=== PATIENT | female | born 1955 | race Two or more races ===

== ENCOUNTER 2019-07-01 05:54 | Inpatient (IN) | payer OTHER ==
[~2019-07-01] VITALS: Ht 162.6 cm; Wt 74.8 kg
--- NOTE | 2019-07-01 06:02 | NUR ---
SE RECIBE PTE ALERTA Y ORIENTADA POR BENOIT EN AMBULANCIA, CANALIZADA EN AREA ANTECUBITAL DERECHO CON ANGIO #20. SE OBSEVA AREA DE CANALIZACION PATENTE. PTE DE DRA. IHSAN MARTINI ES TRANSFERIDA DESDE EL [facility] POR [place] RECETAL DESDE HACE [address] DAL[address]. PTE INDICA QUE SE LE REALIZO SHEKHAR HEMORROIDECTOMIA POR DR.NICOL MARTINI. PTE ES PRESENTADA A DR. SALDIVAR POR PERSONAL PARAMEDICO Y COLOCADA EN AREA DE OBSERVACION CON BARANDAS ELEVADAS EN ESPERA DE EVALUACION MEDICA.
--- NOTE | 2019-07-01 07:41 | NUR ---
MRS CASTILLO ORIENTA A PTE SOBRE ORDENES MEDICAS, LA CUAL REFIERE ENTENDER. LE COLECTA MUESTRAS, LA CANALIZA Y LE ADMINISTRA MEDICAMENTOS BAJO MEDIDAS ASEPTICAS, KENDALL ORDEN MEDICA. PT TOLERA NO PRESENTA REACCION ADVERSA AL MOMENTO.
== END 2019-07-02 13:45 | disposition home or self-care (01) | DRG 379 ==
LOC: ER 05:54 → SURH 10:15
PROVIDERS: ADMIT Colon & Rectal Surgery
DX: K62.5 Hemorrhage of anus and rectum (principal)

== ENCOUNTER 2023-07-14 06:59 | Day surgery (SDC) | payer OTHER | END 2023-07-14 12:25 | disposition home or self-care (01) | LOC: AMB-ENDOS 06:59 | PROVIDERS: ATTEND Colon & Rectal Surgery | DX: K57.30 Diverticulosis of large intestine without perforation or abscess without bleeding (principal); K55.1 Chronic vascular disorders of intestine; R19.04 Left lower quadrant abdominal swelling, mass and lump; R15.9 Full incontinence of feces; Z20.822 Contact with and (suspected) exposure to COVID-19 ==